=== PATIENT | female | born 1985 | race Hispanic/Latino ===

== ENCOUNTER 2016-08-10 19:05 | Emergency (ER) | payer OTHER ==
[~2016-08-10] VITALS: Ht 152.4 cm; Wt 54.5 kg
[~2016-08-10 19:05] MED LIST: DICY20TA33 PO; OMEP20TA86 PO; ONDA8TAB10 PO
[2016-08-10 19:14] VITALS: BP 128/87; PULSE 69; RESP 16; O2SAT 100
[2016-08-10 20:26] LABS: BASOPHILS % (AUTO) 0.2 % (0-3); EOSINOPHILS % (AUTO) 0.3 % (0-5); MONOCYTES % (AUTO) 4.9 % (4-12); Mean Corpuscular Hemoglobin 31.5 pg (27.0-35.0); Mean Corpuscular Volume 89.9 fL (81-100); NEUTROPHILS % (AUTO) 70.7 % (40-74); Platelet Count 190 bil/L (150-400)
[2016-08-10 20:26] LABS: APPEARANCE,URINE CLOUDY (CLEAR,HAZY); COLOR,URINE YELLOW (YELLOW); OCCULT BLOOD,URINE TRACE (NEGATIVE); PH,URINE 6.5 (5.0-8.0); UROBILINOGEN,URINE NORMAL (NORMAL)
[2016-08-10 20:48] LABS: Magnesium 2.1 mg/dL (1.6-2.6)
--- NOTE | 2016-08-10 21:54 | ED.REPORT ---
HPI-Abd Pain F Under 38 Date of Service Aug 10, 2016 ED Provider: Domenica Esqueda MD Patient is a 31 year old female with known gallstones and a history of acid reflux who presents to the ED with epigastric abdominal pain after dinner at 6pm this evening. Patient states that the pain is worst in the RUQ and radiates into her back, up her right shoulder, and towards her neck. The patient has improved since onset, but is worse with movement. Her pain is rated at 6/10, reaching 9/10 at its most severe. Patient reports associated nausea and vomiting , vomiting 2x prior to arrival. She denies fevers, chills, diarrhea, or constipation. Patient was seen in the ED for this complaint in April 2016 with gallstones seen on CT scan. Patient was told to avoid spicy foods, with the patient admitting that she consumed spicy food tonight. Patient is otherwise healthy and does not take any medications daily. Nursing Notes Stated Complaint: ABDOMINAL PAIN Chief Complaint: Female Abdominal Pain Nursing Notes Reviewed: Yes Allergies: Coded Allergies: latex (Verified Allergy, Intermediate, hives,, 08/10/16) Scheduled Famotidine (Pepcid) 20 Mg Tablet 20 MG PO BID Omeprazole (Omeprazole) 20 Mg Tablet.dr 20 MG PO BID Scheduled PRN Dicyclomine (Bentyl) 20 Mg Tablet 20 MG PO QID PRN PRN cramps Ondansetron ODT (Ondansetron ODT) 8 Mg Tab.rapdis 8 MG PO QID PRN PRN For Nausea General Time Seen by MD: 21:52 Chief Complaint Abdominal pain Hx Obtained From: Patient Arrived By: Walk-in Sudden in Onset?: No Onset Occurred: 1 - 4 hours ago Symptom Duration: Since onset Location: : RUQ Quality: Painful Severity: Current: Pain level 6 out of 10 Severity: Maximum: Pain level 9 out of 10 Recent Healthcare: No recent doctor visit, No recent hospitalization Similar Sx Previous: Yes Past Medical History Past Medical History acid reflux gallstones Past Surgical History none reported Smoking History Unknown if Ever Smoker Social History Other Social History: Good social support, , Local resident Ambulatory Status Independent Review of Systems Constitutional: Denies: Chills, Fever GI: Reports: Abdominal pain, Nausea, Vomiting, Denies: Constipation, Diarrhea Complete sys rev & neg: except as marked. Physical Exam Initial Vital Signs Vital Signs (First) Date Time Temp Pulse Resp B/P Pulse Ox O2 Delivery O2 Flow Rate FiO2 08/10/16 19:14 36.0 69 16 128/87 100 Room Air Initial VS: Reviewed, Vital signs normal Head / Eyes: Atraumatic, Normocephalic, PERRL ENT: Conjunctiva normal, No scleral icterus Neck: Supple, Full range of motion Extremities: Vascular intact, Neuro intact Skin: Warm, Dry, No cyanosis Neurologic: Alert, Oriented, Nonfocal Psychiatric: Mood/affect normal, Behavior normal, Normal thought content General/Constitutional: Awake, Alert, No acute distress Respiratory / Chest: Breath sounds NL, Breath sounds = bilat, No respiratory distress, No rales, No rhonchi, No wheezing Cardiovascular: Heart rate NL, Regular rhythm, Heart sounds NL, No murmurs Abdomen: Soft, No guarding, No rebound Tenderness/Guarding/Rebound: Positive: Tender epigastric Back: Painless range of motion Interpretation & Diagnostics Lab Results Interpretation Result Diagram: 08/10/16200508/10/162005 Test 08/10/16 19:52 08/10/16 20:06 Urine Color Yellow (YELLOW) Urine Appearance Cloudy (CLEAR,HAZY) Urine pH 6.5 (5.0-8.0) Urine Specific Stanton 1.015 (1.003-1.035) Urine Protein Negativemg/dL (NEG,TRACE) Urine Glucose (UA) Negativemg/dL (NEGATIVE) Urine Ketones Negativemg/dL (NEGATIVE) Urine Occult Blood Trace (NEGATIVE) Urine Nitrite Negative (NEGATIVE) Urine Bilirubin Negative (NEGATIVE) Urine Urobilinogen Normalmg/dL (NORMAL) Urine Leukocyte Esterase Trace (NEGATIVE) Urine RBC 3-10/hpf (0-2) Urine WBC 6-10/hpf (0-5) Urine Epithelial Cells Many/hpf (NONE-MOD) Urine Crystals Amorphous urates (NONE Urine Bacteria Few/hpf (NONE-FEW) Urine Hyaline Casts None/lpf (NONE) Urine Granular Casts None seen (NONE SEEN) Urine Waxy Casts None seen (NONE SEEN) Urine Red Blood Cell Casts None seen (NONE SEEN) Urine White Blood Cell Casts None seen (NONE SEEN) Urine Mucus None seen (None Seen) Urine Trichomonas None seen (NONE SEEN) Urine Yeast None (NONE SEEN) Urinalysis Comment None Urine Culture Reflexed Indicated White Blood Count 9.5th/mm3 (3.8-10.1) Red Blood Count 4.06mil/mm3 (3.90-5.20) Hemoglobin 12.8g/dL (12.0-15.6) Hematocrit 36.5% (35.0-46.0) Mean Corpuscular Volume 89.9fL (81-100) Mean Corpuscular Hemoglobin 31.5pg (27.0-35.0) Mean Corpuscular Hemoglobin Concent 35.1% (32.0-37.0) Red Cell Distribution Width 12.3% (12.3-15.4) Platelet Count 190bil/L (150-400) Neutrophils (%) (Auto) 70.7% (40-74) Lymphocytes (%) (Auto) 23.6% (14-46) Monocytes (%) (Auto) 4.9% (4-12) Eosinophils (%) (Auto) 0.3% (0-5) Basophils (%) (Auto) 0.2% (0-3) Sodium Level 138mEq/L (134-144) Potassium Level 3.7mEq/L (3.5-5.2) Chloride Level 97mEq/L (97-108) Carbon Dioxide Level 27mmol/L (18-29) Blood Urea Nitrogen 13mg/dL (6-20) Creatinine 0.48mg/dL (0.57-1.00) Estimat Glomerular Filtration Rate 213mL/min (>59) Glucose Level 126mg/dL (60-99) Calcium Level 9.0mg/dL (8.5-10.1) Magnesium Level 2.1mg/dL (1.6-2.6) Total Bilirubin 0.3mg/dL (0.0-1.2) Aspartate Amino Transf (AST/SGOT) 33U/L (0-50) Alanine Aminotransferase (ALT/SGPT) 16U/L (0-32) Alkaline Phosphatase 98U/L (25-150) Total Protein 7.3g/dL (6.4-8.4) Albumin 4.1g/dL (3.4-5.0) Lipase 28U/L (13-60) Hold Castillo Top Tube Received (Received) Re-Eval/Medical Decision Med Decision/Clinical Course The patient presents with symptoms that are concerning for biliary colic have on exam she only had epigastric pain. Her evaluation here does not reveal any signs concerning for biliary obstruction. She she is symptomatically was feeling improved upon discharge. A partial list of differential diagnoses considered were peptic ulcer disease, biliary colic, cholecystitis, pancreatitis , bowel obstruction, and gastroenteritis. Source of Hx: Old records Re-Evaluation/Progress : Time of Eval: 23:25 Patient Status: Condition improved Re-Evaluation/Progress Note: Discussed lab results with the patient. She feels improved. Patient understands and agrees with the plan to be discharged home. Discharge instructions and follow-up discussed. All questions were addressed. Return to the ED warnings given. Counseled Regarding: Diagnosis, Lab results, Need for follow-up, When/why to return to ED Discharge & Departure Primary Impression: Abdominal Pain, Epigastric Disposition: Home Discharge Condition All VS Reviewed: Yes Condition: Stable Patient Instructions: Acute Abdominal Pain (ED) Additional Instructions: It is likely that you have gastritis or gastric ulcer disease. You will be started on medication to treat this. Stay away from spicy food. There were some signs of infection on your urine. You will be called you in 3 days if the culture grows out bacteria that need to be treated. Follow-up with your doctor next week. Return to the emergency department you developed worsening abdominal pain or any other new or concerning symptoms. [facility] Ramana Attestation Portions of this note were transcribed by Lynette Bello. I, Dr. Esqueda personally performed the history, physical exam and medical decision-making; I reviewed and confirmed the accuracy of the information in the transcribed note. Signed by: Ramana Harris, 08/11/2016 0021 copies to: [facility] Jena M MD Aug 10, 2016 21:54 Lynette Bello Aug 10, 2016 22:19
[2016-08-10] MEDS ORDERED: Donnatal-Lido-Mylant 1:1:1 15 mL Syringe PO ONE (22:25)
[2016-08-10] MEDS ORDERED: LidocaineVisc 2%:Antacid 1:1 10 mL Syringe PO ONE (22:25)
[2016-08-10] MEDS ORDERED: FAMO20T PO (23:20)
[2016-08-10] MEDS ORDERED: Alum-Mag Hydrox-Simeth 30 mL Suspension PO ONE (23:55)
[2016-08-11 00:01] VITALS: BP 108/72; PULSE 74; O2SAT 97
== END 2016-08-11 00:02 | disposition home or self-care (01) ==
LOC: SED 19:05
DX: R10.13 Epigastric pain (principal); R11.2 Nausea with vomiting, unspecified; K21.9 Gastro-esophageal reflux disease without esophagitis; Z91.040 Latex allergy status